=== PATIENT | female | born 1965 | race Caucasian/White ===

== ENCOUNTER → 2020-04-27 | Outpatient (CLI) | payer OTHER | END | disposition home or self-care (01) | LOC: SMA 08:55 | DX: Z12.31 Encounter for screening mammogram for malignant neoplasm of breast (principal) | CPT/HCPCS: 77067 ==

== ENCOUNTER 2021-09-13 09:51 | Outpatient (CLI) | payer OTHER | END 2021-09-13 19:05 | disposition home or self-care (01) | LOC: SMA 09:51 | DX: Z12.31 Encounter for screening mammogram for malignant neoplasm of breast (principal); N63.31 Unspecified lump in axillary tail of the right breast | CPT/HCPCS: 76642; 77067 ==

== ENCOUNTER 2023-02-12 10:31 | Outpatient (CLI) | payer OTHER | END 2023-02-12 18:20 | disposition home or self-care (01) | LOC: SMA 10:31 | PROVIDERS: ATTEND Family Medicine | DX: Z12.31 Encounter for screening mammogram for malignant neoplasm of breast (principal); N64.89 Other specified disorders of breast | CPT/HCPCS: 77067 ==

== ENCOUNTER 2023-03-20 09:40 | Outpatient (CLI) | payer OTHER | END 2023-03-20 18:55 | disposition home or self-care (01) | LOC: SUS 09:40 | PROVIDERS: ATTEND Family Medicine | DX: R92.8 Other abnormal and inconclusive findings on diagnostic imaging of breast (principal) | CPT/HCPCS: 76642; 77065 ==

== ENCOUNTER 2024-04-01 09:27 | Outpatient (CLI) | payer OTHER | END 2024-04-01 18:59 | disposition home or self-care (01) | LOC: SMA 09:27 | PROVIDERS: ATTEND Family Medicine | DX: Z12.31 Encounter for screening mammogram for malignant neoplasm of breast (principal); R92.333 Mammographic heterogeneous density, bilateral breasts | CPT/HCPCS: 77067 ==